=== PATIENT | female | born 1975 | race Caucasian/White ===

== ENCOUNTER 2016-06-04 17:19 | Emergency (ER) | payer OTHER ==
[~2016-06-04] VITALS: Ht 171.4 cm; Wt 79.4 kg
--- NOTE | 2016-06-04 18:55 | ED UPPER/LOWER EXTREMITY COMPL ---
History of Present Illness General Chief Complaint: Foot or Ankle Injury Stated Complaint: PT HAS A POSSIBLE BROKEN ANKLE Source: patient Exam Limitations: no limitations Vital Signs & Intake/Output Vital Signs & Intake/Output Vital Signs Date Time Temp Pulse Resp B/P Pulse O2 O2 Flow FiO2 Ox Delivery Rate 06/04 2039 96.8 88 18 130/82 100 Room Air 06/04 1810 98 Room Air 06/04 1734 99.4 110 20 133/83 96 Room Air Allergies Coded Allergies: No Known Allergies (06/04/16) Reconcile Medications Hydrocodone/Acetaminophen ([place] 5-325 Tablet) 5 MG-325 MG TABLET 1 TAB PO TIDPRN PRN PAIN Triage Note: TRIAGE: PT TO ER C/C PAIN AND SWELLING TO L ANKLE S/P INJURY JUST RECRUITMENT AND OUTREACH ASSISTANT. STATES SHE WAS TRYING TO HELP HER 300 LB NEIGHBOR FROM FALLING AND INSTEAD HE FELL ON HER. REFUSES OFFERED PAIN MEDS AT TRIAGE. HAS ICE PACK IN PLACE FROM [facility]. Triage Nurses Notes Reviewed? yes : No Patient currently breastfeeds: No HPI: 40-year-old female with severe left ankle pain and deformity, throbbing, occurred prior to arrival when she was outside talking with her neighbor who fell down on top of her causing the injury and deformity to her ankle. Her neighbor tried to pull the ankle straight as they noted it was deformed. She has no previous injuries to the area. No other injuries. She denies any drugs of intoxication other she does state that she drank half of a martini today. She has no head injury or neck pain. No treatment thus far. It is worse after palpation and motion (SOFIA BARNES) Past History Travel History Traveled to [place] past 21 day No Medical History Any Pertinent Medical History? none Neurological: NONE EENT: NONE Cardiovascular: NONE Respiratory: NONE Gastrointestinal: NONE Hepatic: NONE Renal: NONE Musculoskeletal: NONE Psychiatric: NONE Endocrine: NONE Blood Disorders: NONE Cancer(s): NONE FIELD SUPPORT REPRESENTATIVE/Reproductive: NONE Surgical History Surgical History: non-contributory Psychosocial History What is your primary language Sami Tobacco Use: Never used ETOH Use: occasional use, alcoholic (PER PTS MOTHER) Illicit Drug Use: denies illicit drug use Family History Hx Contributory? No (SOFIA BARNES) Review of Systems Review of Systems Constitutional: Reports: see HPI. Comments Review of systems: See HPI, all other systems negative. Constitutional: No chills fever or weight loss HEENT: No visual changes no sore throat no congestion Cardiovascular: No chest pain ,palpitation , orthopnea or ankle swelling Skin: No jaundice no rashes Respiratory: No dyspnea cough sputum or hemoptysis GI: No nausea no vomiting : No dysuria no hematuria Musclulo skeletal: No back pain no neck pain, see HPI Neurologic: No numbness no confusion Psych: No stress anxiety or depression,. Heme/endocrine: No bruising no bleeding no polyuria or polydipsia Immunology: No splenectomy or history of AIDS (SOFIA BARNES) Physical Exam Physical Exam General Appearance: well developed/nourished Comments: Well-developed well-nourished no apparent distress. HEENT: Atraumatic, extraocular motion intact Neck: Supple, no lymphadenopathy Back: Nontender Respiratory: No respiratory distress Extremities: No edema, full range of motion Neuro: Alert and oriented x3 Psych: Mood affect normal, normal memory normal judgment. Skin: Warm and dry, no rash on exposed skin Left lower extremity, obvious fracture due to dislocation with moderate joint effusion and ecchymosis to the left ankle. Lateral deformity and posterior deformity noted. Neurovascularly intact, dorsal pedal and posterior tibials intact, she is able to wiggle all toes. Sensation is intact. No knee pain or tenderness. No foot pain or tenderness. (SOFIA BARNES) Progress Differential Diagnosis: arterial insufficiency, cellulitis, CHF, compartment syndrome, contusion, dislocation, DVT, fracture, gout, septic arthritis, sprain, tendon injury Plan of Care: Orders Procedure Date/time Status Durable Medical Equipment 06/04 2022 Active XRY-TWO VIEW LEFT ANKLE 06/04 2015 Active Diagnostic Imaging: Viewed by Me: Radiology Read. Discussed w/RAD: Radiology Read. Radiology Impression: PATIENT: VIDHYA WILLIS PRESENT AGE: 40 PATIENT ACCOUNT NO: [id number] : 73 LOCATION: [facility] ORDERING PHYSICIAN: SOFIA PEREZ SERVICE DATE: 06/04/16 EXAM TYPE : RAD - XRY-TWO VIEW LEFT ANKLE EXAMINATION: XR ANKLE, LEFT CLINICAL INFORMATION : Status post fall. COMPARISON: None. TECHNIQUE: AP and lateral views of the left ankle. FINDINGS: AP and lateral views of the left ankle demonstrate a fracture dislocation of the left ankle. Specifically, there are bimalleolar fractures of the left ankle, with the lateral malleolus fracture identified at the level of the ankle syndesmosis. There is disruption of the ankle mortise with anterior displacement of the distal tibia relative to the talar dome. Additionally, there is approximately 6 mm of medial displacement of the distal tibia relative to the talar dome on AP view of the left ankle. There is surrounding soft tissue swelling. There are suspected anterior and posterior ankle joint effusions. IMPRESSION: Fracture or dislocation of the left ankle, characterized by bimalleolar fractures of the left ankle, as described above with associated disruption of the ankle mortise. Specifically, there is anteromedial displacement of the distal tibia relative to the talar dome. DICTATED BY: LORRAINE DALY MD DATE/TIME DICTATED:06/04/161917 CAMP COOK:BRITTNY Comments: upon my initial evaluation, u splint w orthoglass applied due to obvious fracture dislocation, nv status intact, given 5mg morphine IM and xrays ordered. After review of x-ray findings with patient and mother, risks and benefits of treatment discussed, verbal consent was obtained, a closed reduction was performed of the left ankle by myself along with nursing staff. After sterile prep of left ankle anterior lateral aspect the ankle mortise was injected with 10 mL of 1% lidocaine without epinephrine as a hematoma block. Patient tolerated well without complications. Gentle traction was then applied and an anterior drawer fashion to reduce the ankle into the ankle mortise. A palpable clunk was felt and the ankle was anatomically aligned clinically. A well-padded well molded U-splint and posterior splint was applied to the left ankle by myself, neurovascular intact postprocedure. A post reduction x-ray was performed, AP and lateral which shows anatomic alignment of the ankle mortise and excellent Alignment of the fractures. Patient was reevaluated again, she is neurovascularly intact, all results were discussed with patient and plan of care was discussed, nonweightbearing, elevation, ice, stay in splint, orthopedic follow-up. Discussed with Dr. Edmond Huerta . (SOFIA BARNES) Departure Departure Disposition: HOME OR SELF CARE Condition: Stable Clinical Impression Primary Impression: Closed fracture dislocation of ankle joint Referrals: EDMOND GODFREY MD PATIENT HAS NO PRIMARY CARE DR (PCP/Family) Additional Instructions: DO NOT PUT ANY WEIGHT ON THE LEFT LEG KEEP THE LEG ELEVATED MUCH POSSIBLE, ICE THE ANKLE THROUGHT THE SPLINT USE CRUTCHES AT ALL TIMES. TAKE VICODIN FOR PAIN. FOLLOW UP WITH ORTHOPEDIST NEXT WEEK, CALL TO MAKE AN APPOINTMENT. Departure Forms: Customer Survey General Discharge Information Prescriptions: Current Visit Scripts Hydrocodone/Acetaminophen ([place] 5-325 Tablet) 1 TAB PO TIDPRN PRN PAIN #15 TAB (SOFIA BARNES) PA/CLINIQUE COUNTER MANAGER Co-Sign Statement Statement: ED Attending supervision documentation- [] I saw and evaluated the patient. I have also reviewed all the pertinent lab results and diagnostic results. I agree with the findings and the plan of care as documented in the PA's/CLINIQUE COUNTER MANAGER's documentation. x I have reviewed the ED Record and agree with the PA's/CLINIQUE COUNTER MANAGER's documentation. [] Additions or exceptions (if any) to the PAs/CLINIQUE COUNTER MANAGER's note and plan are summarized below: [] (HIRAL DAVIS,DALIA) Critical Care Note Critical Care Note Critical Care Time: 30-74 min (SOFIA BARNES)
--- NOTE | 2016-06-04 19:24 | RADIOLOGY REPORT ---
EXAMINATION: XR ANKLE, LEFT CLINICAL INFORMATION: Status post fall. COMPARISON: None. TECHNIQUE: AP and lateral views of the left ankle. FINDINGS: AP and lateral views of the left ankle demonstrate a fracture dislocation of the left ankle. Specifically, there are bimalleolar fractures of the left ankle, with the lateral malleolus fracture identified at the level of the ankle syndesmosis. There is disruption of the ankle mortise with anterior displacement of the distal tibia relative to the talar dome. Additionally, there is approximately 6 mm of medial displacement of the distal tibia relative to the talar dome on AP view of the left ankle. There is surrounding soft tissue swelling. There are suspected anterior and posterior ankle joint effusions. IMPRESSION: Fracture or dislocation of the left ankle, characterized by bimalleolar fractures of the left ankle, as described above with associated disruption of the ankle mortise. Specifically, there is anteromedial displacement of the distal tibia relative to the talar dome.
[2016-06-04] MEDS ORDERED: NORCO 5-325 TA1 EACH PO (20:28)
[2016-06-04 20:40] VITALS: BP 130/82
--- NOTE | 2016-06-04 20:41 | RADIOLOGY REPORT ---
EXAMINATION: XR ANKLE, LEFT CLINICAL INFORMATION: Status post reduction. COMPARISON: No prior imaging is available. TECHNIQUE: AP and lateral views of the left ankle. FINDINGS: Overlying fiberglass splint material obscures fine bone detail. There is an acute bimalleolar fracture. There is significant widening of the joint space anteriorly best visualized on the lateral view. There is also slight lateral displacement of the talar dome with respect to the ankle mortise with associated lateral displacement of the medial and lateral malleolar fragments. Mild diffuse swelling of the soft tissues. IMPRESSION: There is an acute bimalleolar fracture. There is significant widening of the joint space anteriorly best visualized on the lateral view. Slight lateral displacement of the talar dome with respect to the ankle mortise with associated lateral displacement of the medial and lateral malleolar fragments.
== END 2016-06-04 20:41 ==
LOC: ERH 17:19
DX: S82.842A Displaced bimalleolar fracture of left lower leg, initial encounter for closed fracture (principal); X58.XXXA Exposure to other specified factors, initial encounter
CPT/HCPCS: 73600-LT; 96372

== ENCOUNTER → 2016-06-16 | Day surgery (SDC) | payer OTHER ==
[~2016-06-16] VITALS: Ht 170.2 cm; Wt 79.4 kg
[~2016-06-16] MED LIST: NORCO 5-325 TA1 EACH PO
--- NOTE | 2016-06-17 11:27 | Operative Report ---
Operative/Inv Procedure Report Surgery Date: 06/16/16 Name of Procedure: Open reduction internal fixation of left bimalleolar fracture dislocation Pre-Operative Diagnosis: Left ankle bimalleolar fracture dislocation Post-Operative Diagnosis: Same Estimated Blood Loss: scant Surgeon/Still Operator: EPIFANIO DAVIS,EDMOND Anesthesia: laryngeal mask airway Tourniquet: 65 minutes Complications: None Condition: Stable Operative Indication: Patient is a 40-year-old woman who injured her left ankle when someone fell on her. She was evaluated in the emergency room. She was found to have a displaced fracture dislocation of her left ankle. The emergency room physician close reduced her ankle. She had persistent instability. She was seen in our office in follow-up. She was found to have displaced bimalleolar ankle fracture. She did have fracture blisters as well and significant swelling. The recommendation was to consider ORIF. Risks benefits and expectations of surgical and nonsurgical options were discussed including but not limited to persistent ankle pain, development of osteoarthritis, infection, injury to blood vessel or nerve, anesthesia risks, nonunion, malunion, need for subsequent surgery. She wished to proceed with surgical management Operative/Procedure Note Note: Patient was brought to the operating room and transferred to the operating table. Once under appropriate anesthesia the left lower extremity was prepped and draped in standard fashion. Preoperative IV antibiotics were given prophylactically. The left leg was elevated exsanguinated tourniquet was inflated. Patient did have fracture blisters along the posterior medial and posterior lateral aspect. Our anticipated incisions would not cross these barriers. An incision was made along the posterior lateral aspect of the ankle over the fibular fracture site. The incision was taken down bluntly to the fracture site. Irrigation debridement of early fracture callus was completed. I used a curet. I then reduced the fracture and held in position with a bone clamp. I then placed an interfragmentary screw in standard fashion by over drilling the near cortex and drilling the far cortex, measuring and placing the appropriate length screw. This provided excellent compression at the fracture site. I then applied a neutralization plate along the lateral aspect of the ankle. I contoured a one third tubular plate. 2 cancellus screws are placed distal to the fracture site. 3 cortical screws were placed proximal to the fracture site with good fixation. Copious irrigation followed. I then turned my attention to the medial side. I made a curvilinear incision centered over the medial malleolus fracture site. Incision was taken down bluntly. Care was taken not to injure the saphenous vein and nerve. These were retracted to safety. I then made an incision through the thickened periosteum in this area reduced the medial malleolus fracture and held in position with a 2.0 K wire. This fragment was very small and would only accept one screw. I used the drill followed by measuring and placing the appropriate length partially threaded cancellus screw in position with excellent fracture compression. Copious irrigation followed. I did obtain fluoroscopic images intraoperatively to verify position of the hardware and reduction of the fracture. One screw was changed on the lateral aspect since it was slightly long. I was able to close the thickened periosteum over the medial malleolus fracture this fracture was fairly anterior which altered the position of my normal screw position. I was satisfied with the intraoperative fluoroscopic images. After copious irrigation I then closed the soft tissues with 3-0 Vicryl suture followed by skin closure with 3-0 nylon in interrupted fashion. The lateral wound was copiously irrigated as well soft tissues were closed over the plate with 3-0 Vicryl subcutaneous tissues closed with 3-0 Vicryl and skin was closed with a interrupted 3-0 nylon suture. Appropriate dressings were applied and tourniquet was deflated. Patient was awakened and taken to recovery room in good condition Discharge Disposition: PACU
== END ==
LOC: STS 02:44
DX: S82.842A Displaced bimalleolar fracture of left lower leg, initial encounter for closed fracture (principal); X58.XXXA Exposure to other specified factors, initial encounter
CPT/HCPCS: 81025; C1713; J0131; J0690; J2250